=== PATIENT | male | born 1950 | race Caucasian/White ===

== ENCOUNTER 2021-05-04 14:45 | Emergency (ER) | payer MEDICARE, MEDICAID ==
[~2021-05-04] VITALS: Ht 177.8 cm; Wt 120.0 kg
[2021-05-04 17:09] LABS: HEMOGLOBIN 13.5 g/dl (14.0-18.0); IMMATURE GRANULOCYTES 0.3 % (0.0-5.0); MEAN CORPUSCULAR HGB 28.2 pG CALC (26.0-32.0); MEAN CORPUSCULAR HGB CONC 31.4 g/dL CAL (32.0-36.0); NEUT# 5.96 thou/uL (1.82-7.42); RED BLOOD COUNT 4.78 mill/uL (4.70-6.10); RED CELL DISTRI WIDTH 13.5 % (11.5-15.5)
[2021-05-04 17:26] LABS: ALBUMIN 4.3 g/dL (3.2-5.0); ALKALINE PHOSPHATASE 68 u/l (38-126); AMYLASE 71 u/l (30-110); ANION GAP 14 (6-22 (CALC)); BILIRUBIN, TOTAL 0.8 mg/dL (0.0-1.4); BUN 18 mg/dL (8-23); BUN/CREATININE RATIO 27 (12-20 (CALC)); CARBON DIOXIDE 23 mmol/l (22-30); CHLORIDE 103 mmol/l (95-108); CREATININE 0.7 mg/dL (0.7-1.3); GFR > 60 ML/MIN (>=60 (CALC)); GFR FOR AFR.AMER. > 60 ML/MIN (>=60 (CALC)); LIPASE 71 u/l (23-300); SGOT/AST 25 u/l (19-48); SODIUM 136 mmol/l (137-146); TOTAL PROTEIN 7.9 g/dL (6.3-8.2)
[2021-05-04 17:28] LABS: ACT PARTIAL THROMBO TIME 23.4 SECONDS (20.0-32.5); INTERNATIONAL NORMALIZED RATIO 0.9 RATIO (0.7-1.3); PROTHROMBIN TIME 9.8 SECONDS (9.0-12.5)
[2021-05-04 18:54] LABS: URINE BILIRUBIN - DIPSTICK NEGATIVE (NEGATIVE); URINE BLOOD DIPSTICK NEGATIVE (NEGATIVE); URINE COLOR YELLOW; URINE GLUCOSE - DIPSTICK >=1000 mg/dL (NEGATIVE); URINE KETONE NEGATIVE (NEGATIVE); URINE LEUK ESTERASE NEGATIVE (NEGATIVE); URINE PROTEIN - DIPSTICK NEGATIVE (NEG-TRACE); URINE SPECIFIC GRAVITY 1.025; URINE UROBILINOGEN - DIPSTICK 0.2 E.U./dL (0.2)
[2021-05-04 18:55] LABS: URINE NITRITE - DIPSTICK NEGATIVE (Negative)
[2021-05-04] MEDS ORDERED: PROTONIX40 M2 PO (19:29)
[2021-05-04 19:39] VITALS: BP 140/78
== END 2021-05-04 19:55 | disposition home or self-care (01) ==
LOC: ED 14:45
DX: R10.13 Epigastric pain (principal); E11.9 Type 2 diabetes mellitus without complications
CPT/HCPCS: Q9967; S0164

== ENCOUNTER 2022-04-05 13:09 | Emergency (ER) | payer MEDICARE, MEDICAID ==
[~2022-04-05] VITALS: Ht 177.8 cm; Wt 122.4 kg
[2022-04-05] VITALS (11 sets, daily range): BP systolic 93–176; BP diastolic 59–107
[~2022-04-05 13:09] MED LIST: PROTONIX40 M2 PO
[2022-04-05 14:10] LABS: HEMATOCRIT 39.1 % (39.0-50.0); HEMOGLOBIN 12.8 g/dl (14.0-18.0); IMMATURE GRANULOCYTES 0.2 % (0.0-5.0); MEAN CELL VOLUME 88.5 fL CALC (80.0-100.0); MEAN CORPUSCULAR HGB CONC 32.7 g/dL CAL (32.0-36.0); NEUT# 7.99 thou/uL (1.82-7.42); RED BLOOD COUNT 4.42 mill/uL (4.70-6.10); RED CELL DISTRI WIDTH 13.5 % (11.5-15.5)
[2022-04-05 14:20] LABS: ALBUMIN 4.2 g/dL (3.2-5.0); ALKALINE PHOSPHATASE 67 u/l (38-126); BUN 22 mg/dL (8-23); BUN/CREATININE RATIO 27 (12-20 (CALC)); CARBON DIOXIDE 25 mmol/l (22-30); CHLORIDE 104 mmol/l (95-108); CREATININE 0.8 mg/dL (0.7-1.3); GFR FOR AFR.AMER. > 60 ML/MIN (>=60 (CALC)); GFR OTHER RACES > 60 ML/MIN (>=60 (CALC)); SGOT/AST 29 u/l (19-48); SODIUM 140 mmol/l (137-146); TOTAL PROTEIN 7.2 g/dL (6.3-8.2)
[2022-04-05 14:24] LABS: ANION GAP 15 (6-22 (CALC)); BILIRUBIN, TOTAL 0.3 mg/dL (0.0-1.4); POTASSIUM 3.9 mmol/l (3.5-5.1)
== END 2022-04-05 17:55 | disposition short-term general hospital (02) ==
LOC: ED 13:09
PROVIDERS: Family Medicine
DX: I21.4 Non-ST elevation (NSTEMI) myocardial infarction (principal); I10 Essential (primary) hypertension; E11.9 Type 2 diabetes mellitus without complications
CPT/HCPCS: J1644; Q9967

== ENCOUNTER 2022-04-25 18:06 | Emergency (ER) | payer MEDICARE, MEDICAID ==
[2022-04-25] VITALS (15 sets, daily range): BP systolic 118–149; BP diastolic 67–101
[~2022-04-25] VITALS: Ht 177.8 cm; Wt 150.0 kg
[2022-04-25] MEDS ORDERED: METFORMIN HCL1000 MG PO (21:07)
[2022-04-25] MEDS ORDERED: GLIPIZIDE10 M3 (21:07)
[2022-04-25] MEDS ORDERED: EQL ASPIRIN LOW81 M1 (21:08)
[2022-04-25] MEDS ORDERED: TAMSULOSIN0.4 MG PO (21:09)
[2022-04-25] MEDS ORDERED: FINASTERIDE5 MG PO (21:10)
[2022-04-25 21:25] LABS: URINE BILIRUBIN - DIPSTICK NEGATIVE (NEGATIVE); URINE BLOOD DIPSTICK SMALL (NEGATIVE); URINE COLOR YELLOW; URINE GLUCOSE - DIPSTICK NEGATIVE (NEGATIVE); URINE KETONE TRACE mg/dL (NEGATIVE); URINE LEUK ESTERASE SMALL (NEGATIVE); URINE NITRITE - DIPSTICK POSITIVE (Negative); URINE PROTEIN - DIPSTICK NEGATIVE (NEG-TRACE); URINE SPECIFIC GRAVITY 1.025; URINE UROBILINOGEN - DIPSTICK 0.2 E.U./dL (0.2)
[2022-04-25 21:31] LABS: URINE RBC 0-2 RBC/hpf (0-5); URINE SQUAMOUS EPITHELIAL CELL FEW EPI/hpf (0-FEW)
[2022-04-25 21:32] LABS: URINE BACTERIA MODERATE hpf; URINE MUCUS FEW hpf (NONE-FEW)
[2022-04-25 21:42] LABS: HEMATOCRIT 35.9 % (39.0-50.0); HEMOGLOBIN 11.4 g/dl (14.0-18.0); IMMATURE GRANULOCYTES 0.3 % (0.0-5.0); MEAN CELL VOLUME 89.3 fL CALC (80.0-100.0); MEAN CORPUSCULAR HGB 28.4 pG CALC (26.0-32.0); MEAN CORPUSCULAR HGB CONC 31.8 g/dL CAL (32.0-36.0); NEUT# 5.34 thou/uL (1.82-7.42); RED BLOOD COUNT 4.02 mill/uL (4.70-6.10); RED CELL DISTRI WIDTH 13.4 % (11.5-15.5)
[2022-04-25 21:53] LABS: ALBUMIN 3.7 g/dL (3.2-5.0); ALKALINE PHOSPHATASE 85 u/l (38-126); ANION GAP 14 (6-22 (CALC)); BILIRUBIN, TOTAL 0.2 mg/dL (0.0-1.4); BUN 16 mg/dL (8-23); BUN/CREATININE RATIO 15 (12-20 (CALC)); CARBON DIOXIDE 26 mmol/l (22-30); CHLORIDE 103 mmol/l (95-108); CREATININE 1.1 mg/dL (0.7-1.3); GFR FOR AFR.AMER. > 60 ML/MIN (>=60 (CALC)); GFR OTHER RACES > 60 ML/MIN (>=60 (CALC)); POTASSIUM 4.3 mmol/l (3.5-5.1); SGOT/AST 21 u/l (19-48); SODIUM 139 mmol/l (137-146); TOTAL PROTEIN 6.9 g/dL (6.3-8.2)
[2022-04-25] MEDS ORDERED: CEPHALEXIN500 MG PO (22:08)
[2022-04-25] MEDS ORDERED: PYRIDIUM200 MG PO (22:08)
== END 2022-04-25 23:59 | disposition home or self-care (01) ==
LOC: ED 18:06
PROVIDERS: Emergency Medicine
PROC: 0T2BX0Z Change Drainage Device in Bladder, External Approach (ICD-10-PCS; principal; 2022-04-25)
DX: N39.0 Urinary tract infection, site not specified (principal); B96.20 Unspecified Escherichia coli [E. coli] as the cause of diseases classified elsewhere; E11.9 Type 2 diabetes mellitus without complications; Z95.1 Presence of aortocoronary bypass graft; Z79.84 Long term (current) use of oral hypoglycemic drugs

== ENCOUNTER 2023-01-05 08:57 | Emergency (ER) | payer MEDICARE, MEDICAID ==
[~2023-01-05] VITALS: Ht 177.8 cm; Wt 118.0 kg
[2023-01-05] VITALS (7 sets, daily range): BP systolic 84–130; BP diastolic 61–94
[~2023-01-05 08:57] MED LIST changes: +CEPHALEXIN500 MG PO; +EQL ASPIRIN LOW81 M1; +FINASTERIDE5 MG PO; +GLIPIZIDE10 M3; +METFORMIN HCL1000 MG PO; +PYRIDIUM200 MG PO; +TAMSULOSIN0.4 MG PO
== END 2023-01-05 10:55 | disposition home or self-care (01) ==
LOC: ED 08:57
PROC: 0T9B70Z Drainage of Bladder with Drainage Device, Via Natural or Artificial Opening (ICD-10-PCS; principal; 2023-01-05)
DX: N40.1 Benign prostatic hyperplasia with lower urinary tract symptoms (principal); R33.8 Other retention of urine; I10 Essential (primary) hypertension; E11.9 Type 2 diabetes mellitus without complications; Z95.1 Presence of aortocoronary bypass graft; Z79.84 Long term (current) use of oral hypoglycemic drugs

== ENCOUNTER 2023-01-12 09:08 | Emergency (ER) | payer MEDICARE, MEDICAID ==
[2023-01-12] VITALS (23 sets, daily range): BP systolic 112–147; BP diastolic 59–78
[~2023-01-12] VITALS: Ht 177.8 cm; Wt 122.0 kg
[2023-01-12 11:26] LABS: URINE BILIRUBIN - DIPSTICK Negative (NEGATIVE); URINE BLOOD DIPSTICK Large (NEGATIVE); URINE GLUCOSE - DIPSTICK Negative (NEGATIVE); URINE KETONE Negative (NEGATIVE); URINE NITRITE - DIPSTICK Positive (Negative); URINE PROTEIN - DIPSTICK 100 mg/dL (NEG-TRACE); URINE SPECIFIC GRAVITY >=1.030; URINE UROBILINOGEN - DIPSTICK 0.2 E.U./dL (0.2)
[2023-01-12 11:27] LABS: URINE COLOR Yellow; URINE LEUK ESTERASE Small (NEGATIVE)
[2023-01-12 11:32] LABS: URINE BACTERIA MANY hpf; URINE WBC 50-100 WBC/hpf (0-5)
[2023-01-12] MEDS ORDERED: DOXY-CAPS100 MG PO (15:27)
[2023-01-14] MEDS ORDERED: OMNI-PAC300 MG PO (14:37)
== END 2023-01-12 14:50 | disposition home or self-care (01) ==
LOC: ED 09:08
PROVIDERS: Family Medicine
DX: N39.0 Urinary tract infection, site not specified (principal); B96.20 Unspecified Escherichia coli [E. coli] as the cause of diseases classified elsewhere; R33.9 Retention of urine, unspecified; E11.9 Type 2 diabetes mellitus without complications; Z95.1 Presence of aortocoronary bypass graft; Z79.84 Long term (current) use of oral hypoglycemic drugs; Z20.822 Contact with and (suspected) exposure to COVID-19

== ENCOUNTER 2023-06-16 10:50 | Emergency (ER) | payer MEDICARE, MEDICAID ==
[~2023-06-16] VITALS: Ht 177.8 cm; Wt 117.9 kg
[~2023-06-16 10:50] MED LIST changes: +BACTRIM DS1 TAB PO; +CRESTOR40 MG PO; +DOXY-CAPS100 MG PO; +ENALAPRIL20 MG PO; +ERTAPENEM1 G1 IV; +KEFLEX500 MG PO; +MONTELUKAST SOD10 MG PO; +OMNI-PAC300 MG PO; +OZEMPIC2 MG SC; +PERCOCET 5/321 COMBO PO; +TIMOLOL 0.25%5 ML IO; +ZETIA10 MG PO
[2023-06-16 11:00] VITALS: BP 112/67
[2023-06-16 11:17] LABS: BASO% 0.2 % (0-3); EOS% 0.6 % (0-8); HEMOGLOBIN 13.1 g/dl (14.0-18.0); IMMATURE GRANULOCYTES 0.1 % (0.0-5.0); LYMPH% 15.7 % (15-41); MEAN CELL VOLUME 86.1 fL CALC (80.0-100.0); MEAN CORPUSCULAR HGB 27.5 pG CALC (26.0-32.0); MONO% 7.5 % (2-13); NEUT# 7.14 thou/uL (1.82-7.42); NEUT% 75.9 % (42-76); RED BLOOD COUNT 4.76 mill/uL (4.70-6.10); RED CELL DISTRI WIDTH 13.6 % (11.5-15.5)
[2023-06-16 11:32] LABS: ALKALINE PHOSPHATASE 49 u/l (38-126); ANION GAP 15 (6-22 (CALC)); BUN 21 mg/dL (8-23); BUN/CREATININE RATIO 29 (12-20 (CALC)); CARBON DIOXIDE 20 mmol/l (22-30); CHLORIDE 106 mmol/l (95-108); CREATININE 0.7 mg/dL (0.7-1.3); GFR FOR AFR.AMER. > 60 ML/MIN (>=60 (CALC)); GFR OTHER RACES > 60 ML/MIN (>=60 (CALC)); POTASSIUM 3.8 mmol/l (3.5-5.1); SGOT/AST 25 u/l (19-48); SODIUM 138 mmol/l (137-146); TOTAL PROTEIN 7.1 g/dL (6.3-8.2)
[2023-06-16 11:38] LABS: URINE BLOOD DIPSTICK Moderate (NEGATIVE); URINE GLUCOSE - DIPSTICK Negative (NEGATIVE); URINE KETONE Trace mg/dL (NEGATIVE); URINE PH 5.5 (4.5-8.0); URINE PROTEIN - DIPSTICK Trace mg/dL (NEG-TRACE); URINE SPECIFIC GRAVITY >=1.030; URINE UROBILINOGEN - DIPSTICK 0.2 E.U./dL (0.2)
[2023-06-16 11:39] LABS: URINE COLOR Yellow; URINE LEUK ESTERASE Small (NEGATIVE); URINE NITRITE - DIPSTICK Positive (Negative)
[2023-06-16 11:48] LABS: URINE BACTERIA MANY hpf
[2023-06-16 11:49] LABS: URINE SQUAMOUS EPITHELIAL CELL FEW EPI/hpf (0-FEW)
[2023-06-16 11:50] LABS: URINE HYALINE CAST FEW lpf (NONE-RARE)
[2023-06-16 12:02] VITALS: BP 116/61
[2023-06-16 12:06] LABS: ALBUMIN 4.3 g/dL (3.2-5.0); BILIRUBIN, TOTAL 1.1 mg/dL (0.2-1.3)
[2023-06-16] MEDS ORDERED: OMNICEF300 MG PO (13:46)
[2023-06-16] MEDS ORDERED: MECLIZINE 2525 MG PO (13:46)
[2023-06-16 14:14] VITALS: BP 116/61
== END 2023-06-16 14:17 | disposition home or self-care (01) ==
LOC: ED 10:50
PROVIDERS: Family Medicine
DX: N43.3 Hydrocele, unspecified (principal); N39.0 Urinary tract infection, site not specified; B96.20 Unspecified Escherichia coli [E. coli] as the cause of diseases classified elsewhere; E11.9 Type 2 diabetes mellitus without complications; Z95.1 Presence of aortocoronary bypass graft; Z79.85 Long-term (current) use of injectable non-insulin antidiabetic drugs

== ENCOUNTER 2024-05-14 18:18 | Emergency (ER) | payer MEDICARE, MEDICAID ==
[~2024-05-14] VITALS: Ht 182.9 cm; Wt 122.0 kg
[~2024-05-14 18:18] MED LIST changes: +LEVOFLOXACIN750 MG PO; +MECLIZINE 2525 MG PO; +OMNICEF300 MG PO; +PANTOPRAZOLE SO40 M3 PO; +ZOFRAN4 MG/TAB PO
[2024-05-14 19:34] VITALS: BP 124/70
[2024-05-14 19:45] VITALS: BP 130/79
[2024-05-14] MEDS ORDERED: CIPROFLOXACIN/D1 SUS AD (19:55)
[2024-05-14 20:01] VITALS: BP 131/75
[2024-05-14 20:16] VITALS: BP 136/76
[2024-05-14 20:18] VITALS: BP 136/76
== END 2024-05-14 20:25 | disposition home or self-care (01) ==
LOC: ED 18:18
DX: H60.91 Unspecified otitis externa, right ear (principal); H91.91 Unspecified hearing loss, right ear; E11.9 Type 2 diabetes mellitus without complications; Z95.1 Presence of aortocoronary bypass graft